=== PATIENT | female | born 1970 | race Caucasian/White ===

== ENCOUNTER → 2023-04-26 | Outpatient (REF) | payer BC, SELFPAY | LOC: DHSLP | PROVIDERS: ATTENDING PHYSICIAN Internal Medicine Critical Care Medicine | DX: G47.30 Sleep apnea, unspecified (principal); R06.83 Snoring | CPT/HCPCS: 95800 ==

== ENCOUNTER 2024-11-23 06:06 | Day surgery (SDC) | payer BC, SELFPAY ==
[2024-11-13 14:14] VITALS: BMI 32.1
[2024-11-23] VITALS (9 sets, daily range): BP systolic 101–142; BP diastolic 51–81; BMI 32.1
[2024-11-23] MEDS: CELEBREX 200 MG PO (09:38)
[2024-11-23] MEDS: TYLENOL 1000 MG PO (09:38)
[2024-11-23] MEDS: NORMOSOL-R/PLASMALYTE-A 1000 IV (09:57)
--- NOTE | 2024-11-23 09:59 | PTCARENOTE ---
Earrings and wedding band removed and given to patients . Will monitor patient.
== END 2024-11-23 14:51 | disposition home or self-care (01) ==
LOC: SDS 06:06
PROVIDERS: ATTENDING PHYSICIAN Specialist; FAMILY PHYSICIAN Internal Medicine
DX: S83.231A Complex tear of medial meniscus, current injury, right knee, initial encounter (principal); S83.271A Complex tear of lateral meniscus, current injury, right knee, initial encounter; X58.XXXA Exposure to other specified factors, initial encounter
CPT/HCPCS: 29880; 36415; 93005